=== PATIENT | female | born 1965 | race Caucasian/White ===

== ENCOUNTER → 2022-10-27 12:53 | Outpatient (CLI) | payer BC, SELFPAY ==
--- NOTE | ~2022-10-27 | CT_ITS ---
EXAMINATION: CT sinus wo con DATE: 10/27/2022 13:11 INDICATION: Hypertrophy of nasal turbinates. TECHNIQUE: Computed tomography (CT) of the paranasal sinuses was performed without intravenous contra st. Iterative reconstruction technique was employed. The dose-length product was 409.21 mGy-cm. COMPARISON: None FINDINGS: There is mild mucosal thickening in the frontal sinuses and the anterior and posterior ethm oid sinuses. There is mild mucosal thickening in the anterior sinuses anteriorly. There is mild mucos al thickening in the maxillary sinuses. There are Cheo cells bilaterally. Left ostiomeatal unit is occluded at the hiatus semilunaris. There is rightward deviation of the nasal septum. IMPRESSION: 1. Mild mucosal thickening in the paranasal sinuses with occluded left ostiomeatal unit. 2. Rightward deviation of the nasal septum. Reviewed, dictated and finalized at location A. [employer] IMPRESSION: 1. Mild mucosal thickening in the paranasal sinuses with occluded left ostiomea aaron unit. 2. Rightward deviation of the nasal septum.
== END ==
PROVIDERS: PCP Nurse Practitioner; Visit Provider Otolaryngology
DX: J34.3 Hypertrophy of nasal turbinates (principal); J34.2 Deviated nasal septum
CPT/HCPCS: 70486